=== PATIENT | female | born 1995 | race Two or more races ===

== ENCOUNTER → 2024-06-24 | Outpatient (CLI) | payer MEDICAID, SELFPAY ==
--- NOTE | 2024-06-24 14:30 | XR_ITS ---
Examination: Thyroid sonography complete TECHNIQUE: Grayscale sonographic images thyroid lobes Exam date and time: June 24, 2024 3:18 PM INDICATIONS: Patient states enlarged thyroid noticed beginning 6 months ago. FINDINGS: Right thyroid 6.0 x 3.3 x 3.9 cm Vascular heterogeneous mass with calcifications in the right lobe of the thyroid 3.6 x 2.9 x 3.4 cm Left thyroid 5.3 x 1.5 x 1.2 cm No thyroid nodules IMPRESSION: Recommend ultrasound-guided fine-needle aspiration of large vascular mass replacing the right lobe of the thyroid
== END | disposition home or self-care (01) ==
LOC: CDIM 14:44
PROVIDERS: Referring Provider Family Medicine; Visit Provider Family Medicine
DX: E04.1 Nontoxic single thyroid nodule (principal)
CPT/HCPCS: 76536